=== PATIENT | male | born 1970 | race Caucasian/White ===

== ENCOUNTER 2016-02-26 13:11 | Inpatient (IN) | payer BC ==
[~2016-02-26] VITALS: Ht 170.2 cm; Wt 69.3 kg
[2016-02-26] VITALS (27 sets, daily range): BP systolic 74–96; RESP 9–20; TEMP 98.5–99.4; Ht 170.2 cm; Wt 69.3 kg
[2016-02-26] MEDS ORDERED: NITROGLYCERIN SL 0.4 MG TAB SL ONE (13:20)
[2016-02-26] MEDS ORDERED: ONDANSETRON 4 MG VIAL ONE (13:43)
[2016-02-26] MEDS ORDERED: DILAUDID 1 MG/ML AMP ONE (13:44)
[2016-02-26] MEDS ORDERED: MIDAZOLAM 2 MG/2 ML INJ IV ONE (16:00)
[2016-02-26] MEDS ORDERED: ATROPINE 1 MG/10 ML SYRINGE IV PRN (16:00)
[2016-02-26] MEDS ORDERED: SALINE FLUSH 10 ML FLUSH PRN (16:00)
[2016-02-26] MEDS ORDERED: ACETAMINOPHEN 325 MG TAB PO PRN (16:00)
[2016-02-26] MEDS ORDERED: TEMAZEPAM 7.5 MG CAP PO PRN (16:00)
[2016-02-26] MEDS ORDERED: MORPHINE 2 MG/ML SYR IV PRN (16:00)
[2016-02-26] MEDS ORDERED: PROMETHAZINE 25 MG/ML VIAL IV PRN (16:00)
[2016-02-26] MEDS ORDERED: DEXTROSE 5% SALINE 0.45% 1,000 ML IV SCH ×3 (16:00→23:40)
[2016-02-26] MEDS ORDERED: NITROGLYCERIN SL 0.4 MG TAB SL PRN (16:00)
[2016-02-26] MEDS ORDERED: MIDAZOLAM 2 MG/2 ML INJ IV PRN (16:00)
[2016-02-26] MEDS ORDERED: MORPHINE 2 MG/ML SYR IV ONE (16:00)
[2016-02-26] MEDS ORDERED: NITROGLYCERIN 50 MG/250 ML 250 ML IV PRN (16:00)
[2016-02-26] MEDS ORDERED: DOCUSATE SOD 100 MG CAP PO PRN (16:00)
[2016-02-26] MEDS ORDERED: TRAMADOL 50 MG TAB PO PRN (16:00)
[2016-02-26] MEDS ORDERED: LIDOCAINE 2% 20 ML SUBQ ONE (16:00)
[2016-02-26] MEDS ORDERED: TEMAZEPAM 15 MG CAP PO PRN (16:00)
[2016-02-26] MEDS ORDERED: PROMETHAZINE 25 MG TAB PO PRN (18:10)
[2016-02-26] MEDS ORDERED: MEPERIDINE 50 MG/ML ONE (19:00)
[2016-02-26] MEDS ORDERED: MIDAZOLAM 2 MG/2 ML INJ ONE (19:00)
[2016-02-26] MEDS ORDERED: FENTANYL 100 MCG/2 ML AMP ONE (19:00)
[2016-02-26] MEDS ORDERED: PROMETHAZINE 25 MG/ML VIAL ONE (19:04)
[2016-02-26] MEDS ORDERED: TICAGRELOR 90 MG TAB ONE (19:04)
[2016-02-26] MEDS ORDERED: LIDOCAINE 2% 20 ML ONE (19:04)
[2016-02-26] MEDS ORDERED: hePARIN 1,000 UNITS/1 ML VIAL ONE (19:04)
[2016-02-26] MEDS: CLOTRIMAZOLE 10 MG TROC PO SCH ×2 (19:22→22:16)
[2016-02-26] MEDS: FENTANYL 75 MCG/HR PATCH TRANSDERM SCH (19:23)
[2016-02-26] MEDS ORDERED: Atorvastatin 40 MG TAB PO SCH (21:00)
[2016-02-26] MEDS ORDERED: Carvedilol 3.125 MG TAB PO SCH ×2 (21:00)
[2016-02-26] MEDS ORDERED: KCL CR 20 MEQ TAB PO ONE (21:05)
[2016-02-26] MEDS: TICAGRELOR 90 MG TAB PO SCH (21:19)
[2016-02-26] MEDS: Carvedilol 3.125 MG TAB PO SCH (21:19)
[2016-02-26] MEDS: SALINE FLUSH 10 ML FLUSH SCH (21:19)
[2016-02-26] MEDS: MAG OXIDE 400 MG TAB PO SCH (21:20)
[2016-02-26] MEDS: Atorvastatin 40 MG TAB PO SCH (21:22)
[2016-02-26] MEDS: clonazePAM 0.5 MG TAB PO SCH (21:22)
[2016-02-26] MEDS: OXYCODONE 5 MG TAB PO PRN (21:33)
[2016-02-26] MEDS ORDERED: SODIUM CHLORIDE 0.9% 250 ML IV ONE (23:40)
[2016-02-27] VITALS (37 sets, daily range): BP systolic 75–123; RESP 9–52; TEMP 97.9–98.3
[2016-02-27] MEDS: CLOTRIMAZOLE 10 MG TROC PO SCH ×6 (02:10→22:04)
[2016-02-27] MEDS: SODIUM CHLORIDE 0.9% FLUSH BAG 500 ML IV SCH (06:02)
[2016-02-27] MEDS: SALINE FLUSH 10 ML FLUSH SCH ×2 (07:41→20:56)
[2016-02-27] MEDS: MAG OXIDE 400 MG TAB PO SCH ×2 (08:14→20:56)
[2016-02-27] MEDS: TICAGRELOR 90 MG TAB PO SCH ×2 (08:15→20:57)
[2016-02-27] MEDS: Carvedilol 3.125 MG TAB PO SCH ×2 (08:15→20:57)
[2016-02-27] MEDS: ASPIRIN 81 MG CHEW TAB PO SCH (08:15)
[2016-02-27] MEDS: clonazePAM 0.5 MG TAB PO SCH ×3 (08:16→20:57)
[2016-02-27] MEDS ORDERED: LACT RINGERS 1,000 ML IV SCH ×3 (08:20→13:30)
[2016-02-27] MEDS: OMNIPAQUE 240 MG/ML, 50 ML PO SCH ×2 (09:48→10:41)
[2016-02-27] MEDS: ONDANSETRON 4 MG VIAL IV PRN (09:52)
[2016-02-27] MEDS ORDERED: OPTIRAY 350 100 ML VIAL HMH IV ONE (10:55)
[2016-02-27] MEDS: OXYCODONE 5 MG TAB PO PRN ×2 (13:26→21:42)
[2016-02-27] MEDS: DILAUDID 1 MG/ML AMP IV PRN ×3 (15:21→22:42)
[2016-02-27] MEDS: Atorvastatin 40 MG TAB PO SCH (20:56)
[2016-02-28] VITALS (27 sets, daily range): BP systolic 82–123; RESP 9–21; TEMP 97.7–98.5
[2016-02-28] MEDS: DILAUDID 1 MG/ML AMP IV PRN ×8 (01:30→23:22)
[2016-02-28] MEDS: CLOTRIMAZOLE 10 MG TROC PO SCH ×6 (01:57→20:17)
[2016-02-28] MEDS: LACT RINGERS 1,000 ML IV SCH ×3 (03:50→17:00)
[2016-02-28] MEDS: OXYCODONE 5 MG TAB PO PRN ×3 (05:48→21:46)
[2016-02-28] MEDS: SODIUM CHLORIDE 0.9% FLUSH BAG 500 ML IV SCH (05:59)
[2016-02-28] MEDS: ONDANSETRON 4 MG VIAL IV PRN (06:33)
[2016-02-28] MEDS: SALINE FLUSH 10 ML FLUSH SCH ×2 (08:07→20:17)
[2016-02-28] MEDS: TICAGRELOR 90 MG TAB PO SCH ×2 (09:00→20:17)
[2016-02-28] MEDS: Carvedilol 3.125 MG TAB PO SCH ×2 (09:00→20:17)
[2016-02-28] MEDS: clonazePAM 0.5 MG TAB PO SCH ×3 (09:00→20:17)
[2016-02-28] MEDS: MAG OXIDE 400 MG TAB PO SCH ×2 (09:00→20:16)
[2016-02-28] MEDS: ASPIRIN 81 MG CHEW TAB PO SCH (09:00)
[2016-02-28] MEDS ORDERED: Carvedilol 3.125 MG TAB PO ONE (10:56)
[2016-02-28] MEDS ORDERED: KCL 20 MEQ/15 ML UDC PO ONE (11:00)
[2016-02-28] MEDS: MAGNESIUM SULF 1 GM/100 ML 100 ML IV SCH ×2 (11:19→12:30)
[2016-02-28] MEDS: LORAZEPAM 0.5 MG TAB PO PRN ×2 (12:45→21:46)
[2016-02-28] MEDS: Atorvastatin 40 MG TAB PO SCH (20:16)
[2016-02-29] MEDS: CLOTRIMAZOLE 10 MG TROC PO SCH ×6 (02:49→21:58)
[2016-02-29] MEDS: DILAUDID 1 MG/ML AMP IV PRN ×6 (02:50→21:18)
[2016-02-29 03:01] VITALS: BP_SYST 113; RESP 18; TEMP 98.3
[2016-02-29] MEDS: ONDANSETRON 4 MG VIAL IV PRN ×2 (04:39→19:39)
[2016-02-29] MEDS: OXYCODONE 5 MG TAB PO PRN ×3 (05:47→21:58)
[2016-02-29] MEDS: LORAZEPAM 0.5 MG TAB PO PRN ×2 (05:47→14:23)
[2016-02-29] MEDS: LACT RINGERS 1,000 ML IV SCH (05:48)
[2016-02-29] MEDS: SODIUM CHLORIDE 0.9% FLUSH BAG 500 ML IV SCH (05:48)
[2016-02-29 08:11] VITALS: BP_SYST 110; RESP 20; TEMP 98.1
[2016-02-29] MEDS: ASPIRIN 81 MG CHEW TAB PO SCH (09:26)
[2016-02-29] MEDS: Carvedilol 3.125 MG TAB PO SCH ×2 (09:26→20:05)
[2016-02-29] MEDS: MAG OXIDE 400 MG TAB PO SCH ×2 (09:26→20:05)
[2016-02-29] MEDS: SALINE FLUSH 10 ML FLUSH SCH ×2 (09:26→19:40)
[2016-02-29] MEDS: TICAGRELOR 90 MG TAB PO SCH ×2 (09:26→20:14)
[2016-02-29] MEDS: OXYCODONE/APAP 5/325 TAB PO PRN ×2 (09:27→20:05)
[2016-02-29] MEDS: clonazePAM 0.5 MG TAB PO SCH ×3 (09:29→20:15)
[2016-02-29 12:39] VITALS: BP_SYST 104; RESP 18; TEMP 98.1
[2016-02-29] MEDS ORDERED: FENTANYL 75 MCG/HR PATCH TRANSDERM SCH (13:00)
[2016-02-29] MEDS ORDERED: REMOVE FENTANYL PATCH XX SCH (13:00)
[2016-02-29] MEDS: FENTANYL 75 MCG/HR PATCH TRANSDERM SCH (13:22)
[2016-02-29 15:15] VITALS: BP_SYST 119; RESP 18; TEMP 98
[2016-02-29 19:59] VITALS: BP_SYST 112; RESP 18; TEMP 98.1
[2016-02-29] MEDS: Atorvastatin 40 MG TAB PO SCH (20:05)
[2016-02-29] MEDS ORDERED: Losartan 25 MG TAB PO SCH (21:00)
[2016-02-29 23:35] VITALS: BP_SYST 112; RESP 18; TEMP 98.6
[2016-03-01] MEDS: DILAUDID 1 MG/ML AMP IV PRN ×4 (00:27→09:53)
[2016-03-01] MEDS: OXYCODONE/APAP 5/325 TAB PO PRN ×3 (00:50→11:47)
[2016-03-01] MEDS: CLOTRIMAZOLE 10 MG TROC PO SCH ×4 (03:10→14:24)
[2016-03-01 03:17] VITALS: BP_SYST 114; RESP 18; TEMP 98.2
[2016-03-01] MEDS: SODIUM CHLORIDE 0.9% FLUSH BAG 500 ML IV SCH (05:15)
[2016-03-01] MEDS: OXYCODONE 5 MG TAB PO PRN (06:08)
[2016-03-01] MEDS ORDERED: MISSING DOSE XX ONE (07:15)
[2016-03-01 08:03] VITALS: BP_SYST 101; RESP 18; TEMP 98.2
[2016-03-01] MEDS: SALINE FLUSH 10 ML FLUSH SCH (08:36)
[2016-03-01] MEDS: clonazePAM 0.5 MG TAB PO SCH ×2 (08:37→16:00)
[2016-03-01] MEDS: Carvedilol 3.125 MG TAB PO SCH (08:37)
[2016-03-01] MEDS: ASPIRIN 81 MG CHEW TAB PO SCH (08:37)
[2016-03-01] MEDS: TICAGRELOR 90 MG TAB PO SCH (08:37)
[2016-03-01] MEDS: MAG OXIDE 400 MG TAB PO SCH (08:37)
[2016-03-01] MEDS: LORAZEPAM 0.5 MG TAB PO PRN (08:37)
[2016-03-01] MEDS: ONDANSETRON 4 MG VIAL IV PRN (09:52)
[2016-03-01 11:45] VITALS: BP_SYST 108; RESP 18; TEMP 98.1
[2016-03-01 15:01] VITALS: BP_SYST 108; RESP 18; TEMP 98.1
== END 2016-03-01 15:00 | disposition home or self-care (01) | DRG 250 ==
LOC: ENRESERVDT → ENRESERVTM → ER 13:11 → EMR 16:00 → ENPENDDIS 16:00 → CCU 17:06 → PCU2 02-28 16:07
PROVIDERS: ADMIT Internal Medicine Cardiovascular Disease; ATTEND Internal Medicine Cardiovascular Disease
PROC: 4A023N7 Measurement of Cardiac Sampling and Pressure, Left Heart, Percutaneous Approach (ICD-10-PCS; principal; 2016-02-26)
PROC: B2101ZZ Fluoroscopy of Single Coronary Artery using Low Osmolar Contrast (ICD-10-PCS; 2016-02-26)
PROC: 02703ZZ Dilation of Coronary Artery, One Artery, Percutaneous Approach (ICD-10-PCS; 2016-02-26)
DX: I21.09 ST elevation (STEMI) myocardial infarction involving other coronary artery of anterior wall (principal); K85.90 Acute pancreatitis without necrosis or infection, unspecified; I50.42 Chronic combined systolic (congestive) and diastolic (congestive) heart failure; I47.1 Supraventricular tachycardia; K86.1 Other chronic pancreatitis; F17.200 Nicotine dependence, unspecified, uncomplicated; I25.5 Ischemic cardiomyopathy; I25.10 Atherosclerotic heart disease of native coronary artery without angina pectoris; Z82.49 Family history of ischemic heart disease and other diseases of the circulatory system; J44.9 Chronic obstructive pulmonary disease, unspecified
CPT/HCPCS: 36415; 71010; 74020; 74177; 80048; 80053; 80061; 82550; 82553; 82803; 83690; 83735; 83880; 84132; 84439; 84443; 84484; 85014; 85018; 85025; 85347; 85610; 85730; 92920; 92941; 93005; 93458; 96374; 96375